=== PATIENT | male | born 1985 | race Caucasian/White ===

== ENCOUNTER 2024-08-03 10:35 | Day surgery (SDC) | payer BC ==
[2024-08-03] MEDS: Lactated Ringers 1,000 ML IV SCH (11:19)
[2024-08-03] MEDS ORDERED: Lidocaine 2% 5 ML SDV ONE (12:10)
[2024-08-03] MEDS ORDERED: Propofol 200 MG/20 ML SDV ONE ×3 (12:10→13:24)
[2024-08-03] MEDS ORDERED: Lactated Ringers 1,000 ML IV SCH (13:45)
== END 2024-08-03 14:10 | disposition home or self-care (01) ==
LOC: MW.SDS 10:35 → EEVIPCON 11:45 → MW.SDS 14:10
PROVIDERS: ATTEND Surgery
DX: K31.A0 Gastric intestinal metaplasia, unspecified (principal); K31.89 Other diseases of stomach and duodenum; K29.50 Unspecified chronic gastritis without bleeding; K21.00 Gastro-esophageal reflux disease with esophagitis, without bleeding; F17.210 Nicotine dependence, cigarettes, uncomplicated; Z88.8 Allergy status to other drugs, medicaments and biological substances; Z91.09 Other allergy status, other than to drugs and biological substances
CPT/HCPCS: 43239; J2003; J2704; J7120; 00731